=== PATIENT | female | born 1955 | race Asian ===

== ENCOUNTER 2019-04-22 11:47 | Emergency (ER) | payer OTHER, MEDICAID ==
[~2019-04-22] VITALS: Ht 160 cm; Wt 63.5 kg
[2019-04-22 11:48] VITALS: BP 142/82
--- NOTE | 2019-04-22 11:54 | NUR ---
PATIENT WHEELCHAIR ASSISTED TO BED 4 AT THIS TIME.
--- NOTE | 2019-04-22 12:01 | NUR ---
C/O R SHOULDER PAIN TO RIGHT SCAPULA AND DOWN TO RIGHT ELBOW S/P FALL TODAY 05/20. WAS NOT DIZZY BEFORE FALL, STATES IT WAS AN ACCIDENT WHILE TAKING OUT THE SHEILA TODAY. PT STATES SHE FELL AND HIT HER FACE AND R SHOULDER. PT IS GUARDING SHOULDER, AND STATES SHE CAN'T LIFT HER ARM STATES "MY LIPS HURT". STATES LIMITED ROM TO RIGHT SHOULDER. CMS INTACT. HX: HTN RX: UNKNOWN Addendum: 04/22/19 at 1202 by JEAN-PAUL TAKING OUT THE TRASH
[2019-04-22] MEDS ORDERED: KETOROLAC 30 MG/ML VIAL IM ONE (12:10)
[2019-04-22 14:19] VITALS: BP 135/81
--- NOTE | 2019-04-22 14:19 | NUR ---
Patient discharged with v/s stable. Written and verbal after care instructions given and explained. Patient alert, oriented and verbalized understanding of instructions. Ambulatory with steady gait. All questions addressed prior to discharge. ID band removed. Patient advised to follow up with PMD. Rx of NAPROSYN AND TYLENOL #3 given. Patient educated on indication of medication including possible reaction and side effects. Opportunity to ask questions provided and answered.
== END 2019-04-22 14:19 | disposition home or self-care (01) ==
LOC: MED 11:47
DX: S42.251A Displaced fracture of greater tuberosity of right humerus, initial encounter for closed fracture (principal); I10 Essential (primary) hypertension; Z88.0 Allergy status to penicillin; Z88.2 Allergy status to sulfonamides; Z88.1 Allergy status to other antibiotic agents; W19.XXXA Unspecified fall, initial encounter; Y93.89 Activity, other specified; Y92.89 Other specified places as the place of occurrence of the external cause; Y99.8 Other external cause status
CPT/HCPCS: 73030; 96372; 99283; J1885; Q0092